=== PATIENT | male | born 1970 | race Caucasian/White ===

== ENCOUNTER 2018-01-26 20:39 | Emergency (ER) | payer MEDICAID ==
[~2018-01-26] VITALS: Ht 162.6 cm; Wt 68.0 kg
[2018-01-26 20:46] VITALS: BP 140/78
--- NOTE | 2018-01-26 20:46 | NUR ---
TO BED # 1 AMBULATORY, REPORT GIVEN TO KEISHA RODRÍGUEZ
--- NOTE | 2018-01-26 21:00 | NUR ---
S/P FALL AT 1900 HOUR,WITH ABRASION ON HIS FACE , PATIENT ETOH. 5/10 PAIN, BLEEDING CONTROLLED, NO OTHER COMPLAINTS.
--- NOTE | 2018-01-26 21:02 | NUR ---
PT SUSTAINED ABRASIONS AND SWELLING BELOW LEFT EYE WITH BLEEDING CONTROLLED.
[2018-01-26] MEDS ORDERED: ACETAMINOPHEN EXTRA STRENGTH 500 MG TAB PO ONE (21:05)
[2018-01-26] MEDS ORDERED: BACITRACIN OINT 500 UNITS/GM PKT TP ONE (21:05)
--- NOTE | 2018-01-26 21:16 | NUR ---
BACITRACIN PLACED ON OPEN ABRASIONS ON L PERIORBITAL AREA AND FOREHEAD, COVERED WITH NONADHERENT DRESSING, PT TOLERATED WELL.
--- NOTE | 2018-01-26 21:20 | NUR ---
PT TAKEN TO CT
--- NOTE | 2018-01-26 21:41 | NUR ---
PT BACK FROM CT
--- NOTE | 2018-01-26 22:22 | NUR ---
MOVED TO CHAIR E
[2018-01-26 22:25] VITALS: BP 127/78
--- NOTE | 2018-01-26 22:25 | NUR ---
Patient discharged with v/s stable. Written and verbal after care instructions given and explained. Patient alert, oriented and verbalized understanding of instructions. Ambulatory with steady gait. All questions addressed prior to discharge. ID band removed. Patient advised to follow up with PMD. Rx of Bacitracin bridger given. Patient educated on indication of medication including possible reaction and side effects. Opportunity to ask questions provided and answered.
== END 2018-01-26 22:25 | disposition home or self-care (01) ==
LOC: EDSEX 20:39 → MED 20:39
DX: S00.81XA Abrasion of other part of head, initial encounter (principal); V89.9XXA Person injured in unspecified vehicle accident, initial encounter; Y93.89 Activity, other specified; Y92.009 Unspecified place in unspecified non-institutional (private) residence as the place of occurrence of the external cause; Y99.8 Other external cause status
CPT/HCPCS: 70450; 72125; 99284